=== PATIENT | female | born 1940 | race Two or more races ===

== ENCOUNTER 2017-02-21 21:39 | Emergency (ER) | payer MEDICARE, MEDICAID ==
[~2017-02-21] VITALS: Ht 129.5 cm; Wt 57.6 kg
[~2017-02-21 21:39] MED LIST: INSU100I5 SQ; LEVO25TA7 PO; SIMV40TA5 PO
--- NOTE | 2017-02-21 22:20 | NUR ---
BIB SELF PT STATED "AM DEPRESSED AND AFRAID TO BE ANYWHERE"; DENIES SI/HI, NAD NOTED, VSS, WAITING FOR MD BLANCA. ART, CRISIS NURSE ALREADY BEEN CALLED.
[2017-02-21 22:51] LABS: APPEARANCE,URINE CLEAR (CLEAR); BILIRUBIN,URINE NEGATIVE (NEGATIVE); BLOOD, URINE NEGATIVE Ery/uL (NEGATIVE); COLOR,URINE YELLOW (YELLOW); KETONES,URINE NEGATIVE (NEGATIVE); LEUKOCYTE ESTERASE ,URINE NEGATIVE (NEGATIVE); NITRITE, URINE NEGATIVE (NEGATIVE); PROTEIN,URINE NEGATIVE (NEGATIVE); UGLUCOSE 3+ mg/dL (NEGATIVE); UROBILINOGEN,URINE 0.2 EU/dL (0.2)
--- NOTE | 2017-02-21 22:51 | NUR ---
URINE AND BLOOD SAMPLE SENT TO LAB
[2017-02-21 23:02] LABS: BASOPHILS # (AUTO) 0.1 /CMM (0.0-0.2); BASOPHILS % (AUTO) 0.3 % (0.0-2.0); EOSINOPHILS # (AUTO) 0.2 /CMM (0.0-0.7); EOSINOPHILS % (AUTO) 1.3 % (0.0-6.0); HEMATOCRIT 39 % (33-45); HEMOGLOBIN 12.8 g/dL (11.5-14.8); LYMPHOCYTES # (AUTO) 8.5 /CMM (0.8-4.8); LYMPHOCYTES % (AUTO) 48.4 % (20.0-44.0); MEAN CORPUSCULAR HEMOGLOBIN 31 PG (26.0-33.0); MEAN CORPUSCULAR HGB CONC 32 g/dl (31.0-36.0); MEAN CORPUSCULAR VOLUME 97 fL (82-100); MONOCYTES # (AUTO) 1.1 /CMM (0.1-1.30); MONOCYTES % (AUTO) 6.4 % (2.0-12.0); NEUTROPHILS # (AUTO) 7.7 /CMM (1.8-8.9); NEUTROPHILS % (AUTO) 43.6 % (43.0-81.0); PLATELET COUNT (AUTO) 386 /CMM (150-450); RDW COEFFICIENT OF VARIATION 14.5 (11.5-15.0); RED BLOOD CELL COUNT(AUTO) 4.08 MIL/uL (4.0-5.2); WHITE BLOOD COUNT (AUTO) 17.6 K/uL (4.3-11.0)
[2017-02-21 23:12] LABS: BACTERIA,URINE None seen /HPF (None Seen); RBC,URINE 0-2 /HPF (0-2); SQUAMOUS EPITHELIAL CELL,UR Few /HPF (None Seen); WBC,URINE 0-2 /HPF (0-3)
[2017-02-21 23:13] LABS: CALCIUM, SERUM 9.7 mg/dL (8.5-10.1); CARBON DIOXIDE 32 mmol/L (21-32); CHLORIDE 106 mmol/L (98-107); CREATININE 0.7 mg/dL (0.6-1.3); GLUCOSE 183 mg/dL (74-106); POTASSIUM 4.6 mmol/L (3.5-5.1); SODIUM SERUM 143 mmol/L (136-145); UREA NITROGEN, BLOOD 22 mg/dL (7-18)
[2017-02-21 23:27] LABS: ALANINE AMINOTRANSFERASE 39 U/L (12-78); ALBUMIN 3.7 g/dL (3.4-5.0); ALCOHOL, BLOOD < 3 mg/dL (0-0); ALKALINE PHOSPHATASE 79 U/L (46-116); ASPARTATE AMINOTRANSFERASE 14 U/L (15-37); BILIRUBIN,DIRECT 0.1 mg/dL (0.0-0.2); BILIRUBIN,TOTAL 0.3 mg/dL (0.2-1.0); TOTAL PROTEIN, SERUM 7.4 g/dL (6.4-8.2)
[2017-02-21 23:29] LABS: ACETAMINOPHEN 0 ug/ml (10-30); SALICYLATE 0.9 mg/dL (2.8-20.0)
[2017-02-21] MEDS ORDERED: LORAZEPAM 1 MG TABLET ONE (23:40)
[2017-02-22] MEDS ORDERED: LORAZEPAM 1 MG TABLET PO ONE
--- NOTE | 2017-02-22 00:08 | NUR ---
PT OK TO DISCHARGE PER DR ZALDIVAR. Patient discharged to home in stable condition. Written and verbal after care instructions given. Patient verbalizes understanding of instruction.Patient is awake and alert to self, day, and place. PT ambulatory with a steady gait.
[2017-02-22 00:11] VITALS: BP 128/75
== END 2017-02-22 00:19 | disposition home or self-care (01) ==
LOC: ER 21:46
DX: F41.9 Anxiety disorder, unspecified (principal); R82.99 Other abnormal findings in urine; E11.9 Type 2 diabetes mellitus without complications; F32.9 Major depressive disorder, single episode, unspecified; Z79.4 Long term (current) use of insulin; Z85.07 Personal history of malignant neoplasm of pancreas
CPT/HCPCS: 36415; 80048; 80076; 80305; 80329; 81001; 85025; 99284; A4606; G0480 ×2; 81000-TC; Z7610

== ENCOUNTER 2018-08-27 01:48 | Emergency (ER) | payer MEDICARE, MEDICAID ==
[~2018-08-27] VITALS: Ht 142.2 cm; Wt 56.7 kg
[2018-08-27 01:53] VITALS: BP 141/74
[2018-08-27] MEDS ORDERED: TRAMADOL HCL 50 MG TABLET ONE (02:26)
[2018-08-27] MEDS ORDERED: oxyCODONE/APAP (5/325 MG) 1 UDTAB TABLET ONE (02:30)
[2018-08-27] MEDS ORDERED: TRAMADOL HCL 50 MG TABLET PO ONE (02:30)
[2018-08-27] MEDS ORDERED: oxyCODONE/APAP (5/325 MG) 1 UDTAB TABLET PO ONE (02:30)
--- NOTE | 2018-08-27 02:41 | NUR ---
Patient discharged to home in stable condition. Written and verbal after care instructions given. Patient verbalizes understanding of instruction.
== END 2018-08-27 02:43 | disposition home or self-care (01) ==
LOC: ER 01:50
DX: M54.32 Sciatica, left side (principal); E11.9 Type 2 diabetes mellitus without complications; F32.9 Major depressive disorder, single episode, unspecified; F41.9 Anxiety disorder, unspecified; Z79.4 Long term (current) use of insulin; Z85.07 Personal history of malignant neoplasm of pancreas; Z98.890 Other specified postprocedural states

== ENCOUNTER 2018-08-28 03:04 | Emergency (ER) | payer MEDICARE, MEDICAID ==
[~2018-08-28] VITALS: Ht 142.2 cm; Wt 61.2 kg
--- NOTE | 2018-08-28 03:12 | NUR ---
PT BIBRA. C/O "HAVING L LEG PAIN, SEEMS LIKE MY SCIATICA" -SOB. AOX4. FAMILY AT BEDSIDE.
[2018-08-28] MEDS ORDERED: HYDROMORPHONE INJ 2 MG/ML DISP.SYRIN ONE (03:23)
[2018-08-28] MEDS ORDERED: ONDANSETRON 4 MG TAB.RAPDIS ONE (03:23)
[2018-08-28] MEDS ORDERED: ONDANSETRON 4 MG TAB.RAPDIS SL ONE (03:30)
[2018-08-28] MEDS ORDERED: HYDROMORPHONE INJ 2 MG/ML DISP.SYRIN IM ONE (03:30)
[2018-08-28 04:13] VITALS: BP 128/65
== END 2018-08-28 04:14 | disposition home or self-care (01) ==
LOC: ER 03:05
DX: M54.42 Lumbago with sciatica, left side (principal); E11.9 Type 2 diabetes mellitus without complications; F32.9 Major depressive disorder, single episode, unspecified; F41.9 Anxiety disorder, unspecified; Z98.890 Other specified postprocedural states; Z85.07 Personal history of malignant neoplasm of pancreas; Z79.4 Long term (current) use of insulin; Z79.899 Other long term (current) drug therapy
CPT/HCPCS: 96372; 99283; J1170; Q0162

== ENCOUNTER 2023-10-21 19:04 | Inpatient (IN) | payer MEDICARE, MEDICAID ==
[~2023-10-21] VITALS: Ht 147.3 cm; Wt 53.5 kg
[~2023-10-21 19:04] MED LIST changes: +SIMV-49 PO; -SIMV40TA5 PO
[2023-10-21 19:29] LABS: BASOPHILS # (AUTO) 0.1 K/uL (0.0-0.2); BASOPHILS % (AUTO) 0.6 % (0.0-2.0); EOSINOPHILS # (AUTO) 0.1 K/uL (0.0-0.7); EOSINOPHILS % (AUTO) 0.7 % (0.0-6.0); HEMATOCRIT 38 % (33-45); HEMOGLOBIN 12.4 g/dL (11.5-14.8); LYMPHOCYTES # (AUTO) 4.8 K/uL (0.8-4.8); LYMPHOCYTES % (AUTO) 26.9 % (20.0-44.0); MEAN CORPUSCULAR HEMOGLOBIN 32 PG (26.0-33.0); MEAN CORPUSCULAR HGB CONC 33 g/dl (31.0-36.0); MEAN CORPUSCULAR VOLUME 95 fL (82-100); MONOCYTES # (AUTO) 1.5 K/uL (0.1-1.30); MONOCYTES % (AUTO) 8.4 % (2.0-12.0); NEUTROPHILS # (AUTO) 11.4 K/uL (1.8-8.9); NEUTROPHILS % (AUTO) 63.4 % (43.0-81.0); PLATELET COUNT (AUTO) 272 K/uL (150-450); RED BLOOD CELL COUNT(AUTO) 3.96 MIL/uL (4.0-5.2); RED CELL DISTRIBUTION WIDTH 14.4 % (11.5-15.0)
[2023-10-21] MEDS: IV NS 0.9% 1,000 ML BAG IV ONE (19:29)
[2023-10-21] MEDS: ONDANSETRON HCL/PF 4 MG/2 ML VIAL IVP ONE (19:30)
[2023-10-21] MEDS: PANTOPRAZOLE 40 MG VIAL IV ONE (19:30)
[2023-10-21] MEDS: MORPHINE SULFATE INJ 2 MG/ML DISP.SYRIN IV ONE (19:30)
[2023-10-21] MEDS ORDERED: PANTOPRAZOLE 40 MG VIAL ONE (19:34)
[2023-10-21] MEDS ORDERED: MORPHINE SULFATE INJ 4 MG/ML DISP.SYRIN ONE (19:35)
[2023-10-21] MEDS ORDERED: ONDANSETRON HCL/PF 4 MG/2 ML VIAL ONE (19:35)
[2023-10-21 19:44] LABS: CALCIUM, SERUM 9.7 mg/dL (8.5-10.1); CARBON DIOXIDE 31 mmol/L (21-32); CHLORIDE 102 mmol/L (98-107); CREATININE 0.8 mg/dL (0.6-1.3); GLUCOSE 162 mg/dL (74-106); POTASSIUM 3.5 mmol/L (3.5-5.1); SODIUM SERUM 142 mmol/L (136-145); UREA NITROGEN, BLOOD 31 mg/dL (7-18)
[2023-10-21 19:58] LABS: NT-PRO BNP 260 pg/mL (0-125)
[2023-10-21] MEDS ORDERED: IOHEXOL-300 100 ML VIAL IV ONE (20:07)
[2023-10-21] MEDS ORDERED: CT SWABBABLE VALVE TRANS SET 1 EA INFUS.SET MC ONE (20:08)
[2023-10-21] MEDS ORDERED: IV NS 0.9% 250 ML IV ONE (20:08)
[2023-10-21 20:53] LABS: ALBUMIN 3.5 g/dL (3.4-5.0); BILIRUBIN,DIRECT 0.1 mg/dL (0.0-0.2); BILIRUBIN,TOTAL 0.4 mg/dL (0.2-1.0); TOTAL PROTEIN, SERUM 7.9 g/dL (6.4-8.2)
[2023-10-21] MEDS ORDERED: HYDROMORPHONE 1 MG/1 ML DISP.SYRIN ONE (22:20)
[2023-10-21] MEDS: HYDROMORPHONE 1 MG/1 ML DISP.SYRIN IV ONE (22:26)
[2023-10-21] MEDS ORDERED: Z GUARD REMEDY 4 OZ OINT TP PRN (23:30)
[2023-10-21] MEDS ORDERED: ZOLPIDEM TARTRATE 5 MG TABLET PO PRN (23:30)
[2023-10-21] MEDS ORDERED: MAG HYDROX/AL HYDROX/SIMETH 30 ML UDC PO PRN (23:30)
[2023-10-21] MEDS ORDERED: MAGNESIUM HYDROXIDE 30 ML UDC PO PRN (23:30)
[2023-10-21] MEDS ORDERED: ONDANSETRON HCL/PF 4 MG/2 ML VIAL IVP PRN (23:30)
[2023-10-21] MEDS ORDERED: ENOXAPARIN SODIUM 40 MG/0.4 ML DISP.SYRIN SQ SCH (23:30)
[2023-10-22 00:18] VITALS: O2SAT 96
[2023-10-22 00:35] VITALS: BP 127/52; TEMP 97.9; O2SAT 96
[2023-10-22] MEDS ORDERED: DIATR MEGLU/DIATRIZOATE SODIUM 120 ML BOTTLE (GASTROGRAPHIN) ONE (00:51)
[2023-10-22] MEDS: ENOXAPARIN SODIUM 30 MG/0.3 ML DISP.SYRIN SQ ONE (01:15)
[2023-10-22] MEDS: IV D5/0.45 NACL 1,000 ML IV PRN (01:24)
[2023-10-22] MEDS: ACETAMINOPHEN 325 MG TABLET PO PRN (05:50)
[2023-10-22 07:24] LABS: BASOPHILS # (AUTO) 0.1 K/uL (0.0-0.2); BASOPHILS % (AUTO) 0.5 % (0.0-2.0); EOSINOPHILS # (AUTO) 0.1 K/uL (0.0-0.7); HEMATOCRIT 30 % (33-45); HEMOGLOBIN 9.8 g/dL (11.5-14.8); LYMPHOCYTES # (AUTO) 6.3 K/uL (0.8-4.8); LYMPHOCYTES % (AUTO) 43.8 % (20.0-44.0); MEAN CORPUSCULAR HEMOGLOBIN 31 PG (26.0-33.0); MEAN CORPUSCULAR HGB CONC 33 g/dl (31.0-36.0); MEAN CORPUSCULAR VOLUME 95 fL (82-100); MONOCYTES # (AUTO) 1.1 K/uL (0.1-1.30); MONOCYTES % (AUTO) 7.3 % (2.0-12.0); NEUTROPHILS # (AUTO) 6.8 K/uL (1.8-8.9); NEUTROPHILS % (AUTO) 47.4 % (43.0-81.0); PLATELET COUNT (AUTO) 221 K/uL (150-450); RED BLOOD CELL COUNT(AUTO) 3.13 MIL/uL (4.0-5.2); RED CELL DISTRIBUTION WIDTH 14.4 % (11.5-15.0); WHITE BLOOD COUNT (AUTO) 14.4 K/uL (4.3-11.0)
[2023-10-22 07:36] LABS: CARBON DIOXIDE 29 mmol/L (21-32); CHLORIDE 104 mmol/L (98-107); CREATININE 0.8 mg/dL (0.6-1.3); GLUCOSE 293 mg/dL (74-106); MAGNESIUM 1.7 mg/dL (1.8-2.4); PHOSPHORUS 3.2 mg/dL (2.5-4.9); POTASSIUM 3.6 mmol/L (3.5-5.1); SODIUM SERUM 139 mmol/L (136-145); UREA NITROGEN, BLOOD 25 mg/dL (7-18)
[2023-10-22 08:00] VITALS: BP 114/46; TEMP 98.1; O2SAT 97
[2023-10-22] MEDS: PANTOPRAZOLE 40 MG VIAL IV SCH (08:14)
[2023-10-22] MEDS: Magnesium 1GM/D5W 100ML PREMIX 100 ML IV SCH (09:02)
[2023-10-22] MEDS ORDERED: PIPERACILLIN /TAZOBACTAM 3.375 G in IV D5W 50 ML IV SCH (12:00)
[2023-10-22] MEDS ORDERED: INSU100I4 SQ (13:31)
[2023-10-22] MEDS ORDERED: DULO30CA52 PO (13:31)
[2023-10-22] MEDS ORDERED: SULI200T4 PO (13:31)
[2023-10-22] MEDS ORDERED: VITAMIN E PO (13:31)
[2023-10-22] MEDS ORDERED: INSU200I4 SQ (13:31)
[2023-10-22] MEDS ORDERED: PRED5TAB PO (13:31)
[2023-10-22] MEDS ORDERED: LEFL20TA18 PO (13:31)
[2023-10-22] MEDS ORDERED: ZINC30TA2 PO (13:31)
[2023-10-22] MEDS ORDERED: TURMERIC/GINGER PO (13:31)
[2023-10-22] MEDS ORDERED: PANT40TA49 PO (13:31)
[2023-10-22] MEDS ORDERED: LOSA50TA39 PO (13:31)
[2023-10-22] MEDS ORDERED: PREG75CA PO (13:31)
[2023-10-22] MEDS ORDERED: PHYT100T PO (13:31)
[2023-10-22] MEDS ORDERED: VITAMIN A PO (13:31)
[2023-10-22] MEDS ORDERED: ERGO500093 PO (13:31)
[2023-10-22] MEDS ORDERED: MAGN250T10 PO (13:31)
[2023-10-22] MEDS ORDERED: UBID1CAP2 PO (13:31)
[2023-10-22] MEDS: PIPERACILLIN /TAZOBACTAM 3.375 G in IV D5W 100 ML IV SCH (13:40)
[2023-10-22 16:17] VITALS: BP 143/55; TEMP 98.2; O2SAT 97
[2023-10-22 20:00] VITALS: BP 131/57; TEMP 97.3; O2SAT 99
[2023-10-22] MEDS: ENOXAPARIN SODIUM 30 MG/0.3 ML DISP.SYRIN SQ SCH (21:19)
[2023-10-23 06:49] LABS: CALCIUM, SERUM 8.4 mg/dL (8.5-10.1); CREATININE 0.8 mg/dL (0.6-1.3); MAGNESIUM 2.3 mg/dL (1.8-2.4); POTASSIUM 3.3 mmol/L (3.5-5.1)
[2023-10-23 06:50] LABS: BASOPHILS # (AUTO) 0.1 K/uL (0.0-0.2); BASOPHILS % (AUTO) 0.5 % (0.0-2.0); EOSINOPHILS # (AUTO) 0.2 K/uL (0.0-0.7); EOSINOPHILS % (AUTO) 2.1 % (0.0-6.0); HEMATOCRIT 30 % (33-45); HEMOGLOBIN 9.9 g/dL (11.5-14.8); LYMPHOCYTES # (AUTO) 5.7 K/uL (0.8-4.8); LYMPHOCYTES % (AUTO) 52.2 % (20.0-44.0); MEAN CORPUSCULAR HEMOGLOBIN 32 PG (26.0-33.0); MEAN CORPUSCULAR HGB CONC 34 g/dl (31.0-36.0); MEAN CORPUSCULAR VOLUME 96 fL (82-100); MONOCYTES % (AUTO) 9.5 % (2.0-12.0); NEUTROPHILS # (AUTO) 3.9 K/uL (1.8-8.9); NEUTROPHILS % (AUTO) 35.7 % (43.0-81.0); PLATELET COUNT (AUTO) 213 K/uL (150-450); RED BLOOD CELL COUNT(AUTO) 3.08 MIL/uL (4.0-5.2); RED CELL DISTRIBUTION WIDTH 14.4 % (11.5-15.0); WHITE BLOOD COUNT (AUTO) 10.8 K/uL (4.3-11.0)
[2023-10-23 08:00] VITALS: BP 140/60; TEMP 98.1; O2SAT 98
[2023-10-23] MEDS: PANTOPRAZOLE 40 MG/PACK PACK PO SCH (08:49)
[2023-10-23] MEDS: POTASSIUM CHLORIDE 20 MEQ TAB.PRT.SR PO ONE (09:26)
== END 2023-10-23 13:00 | disposition home or self-care (01) | DRG 389 ==
LOC: ER 19:29 → MED 10-22 00:27
PROVIDERS: ADMIT Student in an Organized Health Care Education/Training Program; ATTEND Nurse Practitioner Acute Care
DX: K56.699 Other intestinal obstruction unspecified as to partial versus complete obstruction (principal); M48.56XA Collapsed vertebra, not elsewhere classified, lumbar region, initial encounter for fracture; E86.0 Dehydration; Z85.07 Personal history of malignant neoplasm of pancreas; Z90.411 Acquired partial absence of pancreas; D72.829 Elevated white blood cell count, unspecified; E11.9 Type 2 diabetes mellitus without complications; F32.A Depression, unspecified; I10 Essential (primary) hypertension; Z79.4 Long term (current) use of insulin; Z90.49 Acquired absence of other specified parts of digestive tract; Z90.81 Acquired absence of spleen; K21.9 Gastro-esophageal reflux disease without esophagitis; M48.061 Spinal stenosis, lumbar region without neurogenic claudication; G47.30 Sleep apnea, unspecified; Z82.49 Family history of ischemic heart disease and other diseases of the circulatory system
CPT/HCPCS: 36415; 71045-TC; 74250-TC; 76705-TC; 80048-TC; 80076-TC; 83605-TC; 83690-TC; 83735-TC; 83880; 84100-TC; 84484-TC; 85025-TC; 97112-TC; 97116-TC; 97530-TC; A4223; C9113; G0378; J1170; J1650; J2270; J2405; J2543; J3475; J3490; J7050; J7060; Q9963; Q9967

== ENCOUNTER 2024-01-10 12:26 | Emergency (ER) | payer OTHER, MEDICAID ==
[~2024-01-10] VITALS: Ht 127 cm; Wt 54.4 kg
[~2024-01-10 12:26] MED LIST changes: +DULO30CA52 PO; +ERGO500093 PO; +INSU100I4 SQ; -INSU100I5 SQ; +INSU200I4 SQ; +LEFL20TA18 PO; -LEVO25TA7 PO; +LOSA50TA39 PO; +MAGN250T10 PO; +PANT40TA49 PO; +PHYT100T PO; +PRED5TAB PO; +PREG75CA PO; -SIMV-49 PO; +SULI200T4 PO; +TURMERIC/GINGER PO; +UBID1CAP2 PO; +VITAMIN A PO; +VITAMIN E PO; +ZINC30TA2 PO
[2024-01-10] MEDS ORDERED: LIDOCAINE 5% (PATCH) 1 EA PATCH TP ONE (14:44)
[2024-01-10] MEDS ORDERED: KETOROLAC TROMETHAMINE 15 MG/ML VIAL ONE (14:44)
[2024-01-10] MEDS ORDERED: HYDROCODONE/APAP 5/325MG TABLET ONE (14:45)
[2024-01-10] MEDS ORDERED: HYDR-4303 PO (15:00)
[2024-01-10] MEDS: HYDROCODONE/APAP 5/325MG TABLET PO ONE (15:00)
[2024-01-10] MEDS: KETOROLAC TROMETHAMINE 15 MG/ML VIAL IM ONE (15:00)
[2024-01-10] MEDS ORDERED: IBUP-1955 PO (15:00)
[2024-01-10] MEDS ORDERED: LIDO30AD10 TP (15:00)
[2024-01-10] MEDS ORDERED: METH4TAB17 PO (15:00)
[2024-01-10] MEDS: LIDOCAINE 5% (PATCH) 1 EA PATCH TP STA (15:01)
[2024-01-10 15:30] VITALS: BP 142/73; TEMP 98; O2SAT 99
[2024-01-11] MEDS ORDERED: HYDR-4303 PO (12:45)
== END 2024-01-10 15:20 | disposition home or self-care (01) ==
LOC: ER 12:26
DX: M54.42 Lumbago with sciatica, left side (principal); I10 Essential (primary) hypertension; E11.9 Type 2 diabetes mellitus without complications; F41.9 Anxiety disorder, unspecified; F32.A Depression, unspecified; Z85.07 Personal history of malignant neoplasm of pancreas; Z90.89 Acquired absence of other organs; Z87.81 Personal history of (healed) traumatic fracture
CPT/HCPCS: 99283; 96372; J1885